=== PATIENT | female | born 1975 | race Caucasian/White ===

== ENCOUNTER 2017-07-03 14:52 | Outpatient (CLI) | payer BC | END 2017-07-03 14:53 | disposition home or self-care (01) | LOC: BICMAMMO 14:52 | PROVIDERS: ATTEND Specialist | DX: Z12.31 Encounter for screening mammogram for malignant neoplasm of breast (principal); N64.89 Other specified disorders of breast; Z80.3 Family history of malignant neoplasm of breast | CPT/HCPCS: 77063; 77067 ==

== ENCOUNTER 2018-07-13 10:23 | Outpatient (CLI) | payer BC ==
--- NOTE | 2018-07-13 11:02 | MMO ---
Bilateral MAMMO Bilat Screen [facility]. CLINICAL HISTORY: Patient is 43 years old and is seen for screening. The patient has the following family history of breast cancer: maternal grandmother, at age 50. The patient has no personal history of cancer. The patient has a history of bilateral Breast reduction at age 20 - benign. VIEWS: The views performed were: bilateral craniocaudal with tomosynthesis; bilateral mediolateral oblique with tomosynthesis; and bilateral exaggerated craniocaudal. FILMS COMPARED: The present examination has been compared to prior imaging studies performed at [facility] on 06/24/2016, 06/29/2016 and 07/03/2017. MAMMOGRAM FINDINGS: The breasts are heterogeneously dense, which could obscure a lesion on mammography. There are no suspicious masses, suspicious calcifications, or new areas of architectural distortion. IMPRESSION: THERE IS NO MAMMOGRAPHIC EVIDENCE OF MALIGNANCY. A ROUTINE FOLLOW-UP MAMMOGRAM IN 1 YEAR IS RECOMMENDED. THE RESULTS OF THIS EXAM WERE SENT TO THE PATIENT. ACR BI-RADS Category 1 - Negative MAMMOGRAPHY NOTE: 1. A negative mammogram report should not delay a biopsy if a dominant of clinically suspicious mass is present. 2. Approximately 10% to 15% of breast cancers are not detected by mammography. 3. Adenosis and dense breasts may obscure an underlying neoplasm.
== END 2018-07-13 10:24 | disposition home or self-care (01) ==
LOC: BICMAMMO 10:23
PROVIDERS: ATTEND Specialist
DX: Z12.31 Encounter for screening mammogram for malignant neoplasm of breast (principal); Z80.3 Family history of malignant neoplasm of breast
CPT/HCPCS: 77063; 77067

== ENCOUNTER 2019-09-20 12:37 | Emergency (ER) | payer BC, OTHER ==
[2019-09-21 13:15] LABS: SARS-CoV-2 MS2 Positive; SARS-CoV-2 N Gene Negative; SARS-CoV-2 S Gene Negative; SARS-CoV-2 orf1ab Negative
== END 2019-09-20 13:35 | disposition home or self-care (01) ==
LOC: ERS 12:37
DX: Z20.828 Contact with and (suspected) exposure to other viral communicable diseases (principal)
CPT/HCPCS: 87635; 99283; U0003

== ENCOUNTER 2020-02-19 15:29 | Outpatient (CLI) | payer BC ==
--- NOTE | 2020-02-19 16:19 | MRI ---
MRI lumbar spine noncontrast: HISTORY: Dorsalgia. Low back pain, worsening since the last 6 months. COMPARISON: None FINDINGS: Appropriate T1 marrow signal intensity of the lumbar vertebra. Lumbar spine vertebral body height is maintained. No fracture. Appropriate signal intensity of the visualized paraspinal muscles and solid organs Conus medullaris terminates at the mid L1 level Type I Modic changes at L4-L5. There is bilateral facet hypertrophy at L4-L5 and L5-S1. 0.7 cm of ant erolisthesis of L4 upon L5. No associated spondylolysis. T12-L1:Minimal disc desiccation. Minimal right paracentral disc herniation. No significant central ca nal stenosis or significant neural foraminal narrowing L1-L2:Adequate disc hydration. No significant loss of disc space height. Broad-based disc bulge, liga mentum flavum thickening and facet hypertrophy result in mild central canal stenosis. Patent bilateral neural foramina. L2-L3:Adequate disc hydration. No significant loss of disc space height. Broad-based disc bulge, liga mentum flavum thickening and facet hypertrophy result in mild central canal stenosis. Mild bilateral neural foraminal narrowing L3-L4:Adequate disc hydration. No significant loss of disc space height. Broad-based disc bulge, liga mentum flavum thickening and facet hypertrophy result in mild central canal stenosis. Mild bilateral neural foraminal narrowing. Trace amount of fluid in the right facet joint. L4-L5:Disc desiccation with moderate loss of disc space height. Broad-based disc bulge, ligament flav um thickening and facet hypertrophy result in moderate to severe central canal stenosis. Narrowing of bilateral subarticular zones with obscuration of bilateral traversing L5 nerve roots. Moderate tiffany ateral neural foraminal narrowing. L5-S1:Adequate disc hydration. No significant loss of disc space height. There is a small right extra foraminal annular fissure. Annular fissure abuts the extraforaminal right L5 nerve root. Minimal mass effect upon the ventral thecal sac. No significant central canal stenosis. Patent bilateral neur al foramina. There is bilateral facet hypertrophy with a small amount of fluid in bilateral facet joints. IMPRESSION: Multilevel degenerative changes of the lumbar spine as described above. Transcribed Date/Time: 02/19/2020 4:53 PM
== END 2020-02-19 15:30 | disposition home or self-care (01) ==
LOC: BICMRI 15:29
PROVIDERS: ATTEND Specialist
DX: M47.816 Spondylosis without myelopathy or radiculopathy, lumbar region (principal); M54.9 Dorsalgia, unspecified
CPT/HCPCS: 72148

== ENCOUNTER 2020-03-04 14:07 | Outpatient (CLI) | payer BC ==
--- NOTE | 2020-03-04 14:38 | MMO ---
Bilateral MAMMO Bilat Screen [facility]. CLINICAL HISTORY: Patient is 44 years old and is seen for screening. The patient has the following family history of breast cancer: maternal grandmother, at age 50. The patient has no personal history of cancer. The patient has a history of bilateral Breast reduction at age 20 - benign. VIEWS: The views performed were: bilateral craniocaudal with tomosynthesis and bilateral mediolateral oblique with tomosynthesis. FILMS COMPARED: The present examination has been compared to prior imaging studies performed at [facility] on 06/24/2016, 06/29/2016, 07/03/2017 and 07/13/2018. This study has been interpreted with the assistance of computer-aided detection. MAMMOGRAM FINDINGS: The breasts are heterogeneously dense, which could obscure a lesion on mammography. There are no suspicious masses, suspicious calcifications, or new areas of architectural distortion. IMPRESSION: THERE IS NO MAMMOGRAPHIC EVIDENCE OF MALIGNANCY. A ROUTINE FOLLOW-UP MAMMOGRAM IN 1 YEAR IS RECOMMENDED. THE RESULTS OF THIS EXAM WERE SENT TO THE PATIENT. ACR BI-RADS Category 1 - Negative MAMMOGRAPHY NOTE: 1. A negative mammogram report should not delay a biopsy if a dominant of clinically suspicious mass is present. 2. Approximately 10% to 15% of breast cancers are not detected by mammography. 3. Adenosis and dense breasts may obscure an underlying neoplasm. Reported by: YARELIS VIEIRA MD Electonically Signed: [id number]
== END 2020-03-04 14:08 | disposition home or self-care (01) ==
LOC: BICMAMMO 14:07
PROVIDERS: ATTEND Specialist
DX: Z12.31 Encounter for screening mammogram for malignant neoplasm of breast (principal); Z91.89 Other specified personal risk factors, not elsewhere classified
CPT/HCPCS: 77063; 77067

== ENCOUNTER 2022-09-28 09:47 | Outpatient (CLI) | payer BC | END 2022-09-28 09:48 | disposition home or self-care (01) | LOC: RAD 09:47 | PROVIDERS: ATTEND Specialist | DX: M19.031 Primary osteoarthritis, right wrist (principal); M19.042 Primary osteoarthritis, left hand ==

== ENCOUNTER 2022-10-21 12:09 | Outpatient (CLI) | payer BC | END 2022-10-21 12:10 | disposition home or self-care (01) | LOC: BICMAMMO 12:09 | PROVIDERS: ATTEND Specialist | DX: Z12.31 Encounter for screening mammogram for malignant neoplasm of breast (principal); Z80.3 Family history of malignant neoplasm of breast | CPT/HCPCS: 77063; 77067 ==